=== PATIENT | female | born 1935 | race Two or more races ===

== ENCOUNTER 2018-09-20 11:11 | Emergency (ER) | payer MEDICARE, MEDICAID ==
[~2018-09-20] VITALS: Ht 152.4 cm; Wt 82.1 kg
[2018-09-20 11:59] LABS: MICROSCOPIC INDICATED
[2018-09-20 12:01] LABS: CULTURE INDICATED? YES
[2018-09-20 12:05] LABS: BASOPHILS # (AUTO) 0.07 x10^3/uL (0-0.1); BASOPHILS % (AUTO) 1 % (0-1); EOSINOPHILS # (AUTO) 0.02 x10^3/uL (0-0.4); EOSINOPHILS % (AUTO) 0 % (1-7); LYMPHOCYTES # (AUTO) 1.73 x10^3/uL (1-3.4); LYMPHOCYTES % (AUTO) 19 % (22-44); MD NO; MEAN CORPUSCULAR HEMOGLOBIN 31.4 pg (27.0-34.8); MEAN CORPUSCULAR HGB CONC 33.2 g/dL (32.4-35.8); MEAN CORPUSCULAR VOLUME 94.5 fL (80-100); MONOCYTES # (AUTO) 0.62 x10^3/uL (0.2-0.8); MONOCYTES % (AUTO) 7 % (2-9); NEUTROPHILS % (AUTO) 73 % (42-75); PLATELET COUNT 264 x10^3/uL (130-400); RED BLOOD COUNT 3.74 x10^6/uL (3.82-5.3)
[2018-09-20 12:21] LABS: ALBUMIN 3.3 g/dL (3.4-5.0); ANION GAP 9 mmol/L (5-15); CALCIUM 8.9 mg/dL (8.5-10.1); CHLORIDE 97 mmol/L (98-107)
[2018-09-20 12:27] LABS: ALANINE AMINOTRANSFERASE 24 U/L (12-78); ALKALINE PHOSPHATASE 65 U/L (45-117); BILIRUBIN,TOTAL 0.6 mg/dL (0.2-1.0); CREATININE 0.66 mg/dL (0.55-1.02); TOTAL PROTEIN 6.9 g/dL (6.4-8.2); TROPONIN I < 0.015 ng/mL (0.000-0.045)
[2018-09-20 12:46] LABS: SODIUM,URINE RANDOM 136 mmol/L
[2018-09-20 12:56] LABS: OSMOLALITY,URINE 609 mOsm/kg (500-850)
[2018-09-20 13:23] VITALS: BP 131/69
--- NOTE | 2018-09-20 13:24 | NUR ---
PT HAS USED BEDSIDE COMMODE 5 TIMES IN 2HRS, NOTIFIED
--- NOTE | 2018-09-20 13:40 | NUR ---
PHYSICIAN SCRIBE AT BEDSIDE FOR BEDSIDE BLADDER US/BLADDER SCAN, RN AT BEDSIDE FOR ASSIST
--- NOTE | 2018-09-20 14:04 | NUR ---
pt and family refusing hostpital admission. pt to be discharged. discharge insturctions given and pt instructed to return to hospital if not better.
== END 2018-09-20 14:19 | disposition home or self-care (01) ==
LOC: ED 13:14
DX: E87.1 Hypo-osmolality and hyponatremia (principal); R53.1 Weakness; M25.512 Pain in left shoulder; M25.511 Pain in right shoulder; I10 Essential (primary) hypertension; E11.9 Type 2 diabetes mellitus without complications; E78.5 Hyperlipidemia, unspecified
CPT/HCPCS: 36415; 71045; 80053; 81001; 83930; 83935; 84300; 84443; 84484; 85025; 87086; 99284

== ENCOUNTER 2018-11-18 19:33 | Emergency (ER) | payer MEDICARE ==
[~2018-11-18] VITALS: Ht 157.5 cm; Wt 80.1 kg
[2018-11-18 20:22] LABS: BASOPHILS # (AUTO) 0.05 x10^3/uL (0-0.1); BASOPHILS % (AUTO) 1 % (0-1); EOSINOPHILS # (AUTO) 0.05 x10^3/uL (0-0.4); EOSINOPHILS % (AUTO) 1 % (1-7); LYMPHOCYTES # (AUTO) 3.81 x10^3/uL (1-3.4); LYMPHOCYTES % (AUTO) 36 % (22-44); MD NO; MEAN CORPUSCULAR HEMOGLOBIN 33.4 pg (27.0-34.8); MEAN CORPUSCULAR HGB CONC 33.8 g/dL (32.4-35.8); MEAN CORPUSCULAR VOLUME 98.8 fL (80-100); MEAN PLATELET VOLUME 8.2 fL (7.4-10.4); MONOCYTES # (AUTO) 0.71 x10^3/uL (0.2-0.8); MONOCYTES % (AUTO) 7 % (2-9); NEUTROPHILS # (AUTO) 5.96 x10^3/uL (1.8-6.8); NEUTROPHILS % (AUTO) 56 % (42-75); PLATELET COUNT 229 x10^3/uL (130-400); RED BLOOD COUNT 4.08 x10^6/uL (3.82-5.3); RED CELL DISTRIBUTION WIDTH 14.5 % (9.6-15.2)
[2018-11-18 20:33] LABS: ALBUMIN 3.8 g/dL (3.4-5.0); ANION GAP 10 mmol/L (5-15); CALCIUM 9.5 mg/dL (8.5-10.1); CHLORIDE 99 mmol/L (98-107); CREATININE 0.93 mg/dL (0.55-1.02)
[2018-11-18 20:43] LABS: FREE T4 (FREE THYROXINE) 1.63 ng/dL (0.76-1.46)
--- NOTE | 2018-11-18 21:40 | NUR ---
UP TO VOID W/ X 1 ASST BACK TO BED. CALL LIGHT IN REACH.
--- NOTE | 2018-11-18 21:41 | NUR ---
FAMILY AT BEDSIDE.
--- NOTE | 2018-11-18 22:08 | NUR ---
BACK UP TO THE COMMODE TO VOID. UA COLLECTED AND SENT TO THE LAB.
[2018-11-18 22:31] LABS: CULTURE INDICATED? YES; MICROSCOPIC INDICATED
[2018-11-18 23:25] VITALS: BP 118/70
--- NOTE | 2018-11-18 23:27 | NUR ---
D/C TO THE CARE OF HER DTR.
== END 2018-11-18 23:28 | disposition home or self-care (01) ==
LOC: ED 23:04
DX: M25.512 Pain in left shoulder (principal); M79.10 Myalgia, unspecified site; R20.2 Paresthesia of skin; E11.9 Type 2 diabetes mellitus without complications; I10 Essential (primary) hypertension; E78.5 Hyperlipidemia, unspecified
CPT/HCPCS: 36415; 80048; 81001; 82040; 84439; 84443; 85025; 87086; 99284

== ENCOUNTER 2019-02-23 13:21 | Emergency (ER) | payer MEDICARE, MEDICAID ==
[~2019-02-23] VITALS: Ht 160 cm; Wt 79.5 kg
--- NOTE | 2019-02-23 13:46 | NUR ---
Pt to ED from home accomp by daughter. c/o that she is not sleeping x3 weeks. had tremors x1 month, seen at neurologist to r/o parkinson. went to see pcp. told triage "We think she has anxiety, she has not slept for three weeks now. The doctor perscribed her Melatonin and Tylenol. Sometimes she is in pain, she has a bad shoulder (left torn rotator cuff)." MILTOND Nettie at bedside for eval. daughter cannot remember name of sleep aid for pt. call cano in reach.
[2019-02-23 14:24] LABS: MICROSCOPIC AUTO
[2019-02-23 14:26] LABS: CULTURE INDICATED? YES
[2019-02-23 14:57] VITALS: BP 121/63
== END 2019-02-23 15:00 | disposition home or self-care (01) ==
LOC: ED 14:50
DX: G47.00 Insomnia, unspecified (principal); I10 Essential (primary) hypertension; E11.9 Type 2 diabetes mellitus without complications; E78.5 Hyperlipidemia, unspecified; E87.1 Hypo-osmolality and hyponatremia
CPT/HCPCS: 81001; 87077; 87086; 87186; 99283

== ENCOUNTER → 2019-07-24 | Outpatient (CLI) | payer MEDICARE ==
[~2019-07-24] MED LIST: OMNIPAQUE 350 MG/ML, 100ML BOTTLE ONE
== END | disposition home or self-care (01) ==
LOC: CFH 12:10
PROVIDERS: ATTEND Family Medicine
DX: K76.0 Fatty (change of) liver, not elsewhere classified (principal); K86.89 Other specified diseases of pancreas; I70.0 Atherosclerosis of aorta; M41.86 Other forms of scoliosis, lumbar region; M47.816 Spondylosis without myelopathy or radiculopathy, lumbar region
CPT/HCPCS: 74177; 82565; Q9967

== ENCOUNTER → 2020-01-20 | Outpatient (CLI) | payer MEDICARE, MEDICAID | END | disposition home or self-care (01) | LOC: WOUND 07:54 | PROVIDERS: ATTEND Surgery | DX: E11.622 Type 2 diabetes mellitus with other skin ulcer (principal); L97.821 Non-pressure chronic ulcer of other part of left lower leg limited to breakdown of skin; E11.621 Type 2 diabetes mellitus with foot ulcer; L97.521 Non-pressure chronic ulcer of other part of left foot limited to breakdown of skin; L98.8 Other specified disorders of the skin and subcutaneous tissue; M19.90 Unspecified osteoarthritis, unspecified site; I10 Essential (primary) hypertension; E78.5 Hyperlipidemia, unspecified; G47.00 Insomnia, unspecified; I87.2 Venous insufficiency (chronic) (peripheral); F32.9 Major depressive disorder, single episode, unspecified; M47.816 Spondylosis without myelopathy or radiculopathy, lumbar region; E66.9 Obesity, unspecified; Z68.23 Body mass index [BMI] 23.0-23.9, adult; Z79.82 Long term (current) use of aspirin | CPT/HCPCS: 97597; 97598; G0463 ==

== ENCOUNTER → 2020-01-27 | Outpatient (CLI) | payer MEDICARE, MEDICAID | END | disposition home or self-care (01) | LOC: WOUND 08:24 | PROVIDERS: ATTEND Nurse Practitioner Family | DX: E11.622 Type 2 diabetes mellitus with other skin ulcer (principal); L97.821 Non-pressure chronic ulcer of other part of left lower leg limited to breakdown of skin; E11.621 Type 2 diabetes mellitus with foot ulcer; L97.521 Non-pressure chronic ulcer of other part of left foot limited to breakdown of skin; L98.8 Other specified disorders of the skin and subcutaneous tissue; M19.90 Unspecified osteoarthritis, unspecified site; I10 Essential (primary) hypertension; E78.5 Hyperlipidemia, unspecified; G47.00 Insomnia, unspecified; I87.2 Venous insufficiency (chronic) (peripheral); F32.9 Major depressive disorder, single episode, unspecified; M47.816 Spondylosis without myelopathy or radiculopathy, lumbar region; E66.9 Obesity, unspecified; Z68.23 Body mass index [BMI] 23.0-23.9, adult; Z79.82 Long term (current) use of aspirin | CPT/HCPCS: G0463 ==

== ENCOUNTER → 2020-02-10 | Outpatient (CLI) | payer MEDICARE, MEDICAID | END | disposition home or self-care (01) | LOC: WOUND 08:22 | PROVIDERS: ATTEND Nurse Practitioner Family | DX: E11.622 Type 2 diabetes mellitus with other skin ulcer (principal); I87.312 Chronic venous hypertension (idiopathic) with ulcer of left lower extremity; L97.821 Non-pressure chronic ulcer of other part of left lower leg limited to breakdown of skin; L97.321 Non-pressure chronic ulcer of left ankle limited to breakdown of skin; L97.221 Non-pressure chronic ulcer of left calf limited to breakdown of skin; E11.621 Type 2 diabetes mellitus with foot ulcer; L97.521 Non-pressure chronic ulcer of other part of left foot limited to breakdown of skin; I87.391 Chronic venous hypertension (idiopathic) with other complications of right lower extremity; L98.8 Other specified disorders of the skin and subcutaneous tissue; M19.90 Unspecified osteoarthritis, unspecified site; E78.5 Hyperlipidemia, unspecified; G47.00 Insomnia, unspecified; F32.9 Major depressive disorder, single episode, unspecified; M47.816 Spondylosis without myelopathy or radiculopathy, lumbar region; L84 Corns and callosities; E66.9 Obesity, unspecified; Z68.23 Body mass index [BMI] 23.0-23.9, adult; Z79.82 Long term (current) use of aspirin | CPT/HCPCS: 97597; 97598 ==

== ENCOUNTER 2020-02-17 09:00 | Outpatient (CLI) | payer MEDICARE, MEDICAID | END 2020-02-17 23:59 | disposition home or self-care (01) | LOC: WOUND 09:00 | PROVIDERS: ATTEND Nurse Practitioner Family | DX: I87.313 Chronic venous hypertension (idiopathic) with ulcer of bilateral lower extremity (principal); E11.622 Type 2 diabetes mellitus with other skin ulcer; L98.495 Non-pressure chronic ulcer of skin of other sites with muscle involvement without evidence of necrosis; L97.821 Non-pressure chronic ulcer of other part of left lower leg limited to breakdown of skin; L97.811 Non-pressure chronic ulcer of other part of right lower leg limited to breakdown of skin; L97.321 Non-pressure chronic ulcer of left ankle limited to breakdown of skin; L97.221 Non-pressure chronic ulcer of left calf limited to breakdown of skin; L98.8 Other specified disorders of the skin and subcutaneous tissue; M19.90 Unspecified osteoarthritis, unspecified site; E78.5 Hyperlipidemia, unspecified; G47.00 Insomnia, unspecified; F32.9 Major depressive disorder, single episode, unspecified; M47.816 Spondylosis without myelopathy or radiculopathy, lumbar region; L84 Corns and callosities; E66.9 Obesity, unspecified; Z68.23 Body mass index [BMI] 23.0-23.9, adult; Z79.82 Long term (current) use of aspirin | CPT/HCPCS: 97597; 97598 ==

== ENCOUNTER 2020-02-24 08:31 | Outpatient (CLI) | payer MEDICARE, MEDICAID | END 2020-02-24 23:59 | disposition home or self-care (01) | LOC: WOUND 08:31 | PROVIDERS: ATTEND Nurse Practitioner Family | DX: I87.313 Chronic venous hypertension (idiopathic) with ulcer of bilateral lower extremity (principal); E11.622 Type 2 diabetes mellitus with other skin ulcer; L98.495 Non-pressure chronic ulcer of skin of other sites with muscle involvement without evidence of necrosis; L97.811 Non-pressure chronic ulcer of other part of right lower leg limited to breakdown of skin; L97.821 Non-pressure chronic ulcer of other part of left lower leg limited to breakdown of skin; L97.321 Non-pressure chronic ulcer of left ankle limited to breakdown of skin; L97.221 Non-pressure chronic ulcer of left calf limited to breakdown of skin; L98.8 Other specified disorders of the skin and subcutaneous tissue; M19.90 Unspecified osteoarthritis, unspecified site; E78.5 Hyperlipidemia, unspecified; G47.00 Insomnia, unspecified; F32.9 Major depressive disorder, single episode, unspecified; M47.816 Spondylosis without myelopathy or radiculopathy, lumbar region; L84 Corns and callosities; E66.9 Obesity, unspecified; Z68.23 Body mass index [BMI] 23.0-23.9, adult; Z79.82 Long term (current) use of aspirin | CPT/HCPCS: 97597; 97598 ==

== ENCOUNTER 2020-03-02 09:00 | Outpatient (CLI) | payer MEDICARE, MEDICAID | END 2020-03-02 23:59 | disposition home or self-care (01) | LOC: WOUND 09:00 | PROVIDERS: ATTEND Nurse Practitioner Family | DX: I87.333 Chronic venous hypertension (idiopathic) with ulcer and inflammation of bilateral lower extremity (principal); E11.622 Type 2 diabetes mellitus with other skin ulcer; I70.25 Atherosclerosis of native arteries of other extremities with ulceration; L98.495 Non-pressure chronic ulcer of skin of other sites with muscle involvement without evidence of necrosis; I70.238 Atherosclerosis of native arteries of right leg with ulceration of other part of lower leg; L97.811 Non-pressure chronic ulcer of other part of right lower leg limited to breakdown of skin; I70.248 Atherosclerosis of native arteries of left leg with ulceration of other part of lower leg; L97.821 Non-pressure chronic ulcer of other part of left lower leg limited to breakdown of skin; I70.243 Atherosclerosis of native arteries of left leg with ulceration of ankle; L97.321 Non-pressure chronic ulcer of left ankle limited to breakdown of skin; I70.242 Atherosclerosis of native arteries of left leg with ulceration of calf; L97.221 Non-pressure chronic ulcer of left calf limited to breakdown of skin; L98.8 Other specified disorders of the skin and subcutaneous tissue; M19.90 Unspecified osteoarthritis, unspecified site; E78.5 Hyperlipidemia, unspecified; G47.00 Insomnia, unspecified; F32.9 Major depressive disorder, single episode, unspecified; M47.816 Spondylosis without myelopathy or radiculopathy, lumbar region; L84 Corns and callosities; E66.9 Obesity, unspecified; Z68.23 Body mass index [BMI] 23.0-23.9, adult; Z79.82 Long term (current) use of aspirin | CPT/HCPCS: C5271; C5272; Q4118; Q4166; 15271; 15272 ==

== ENCOUNTER → 2020-03-09 | Outpatient (CLI) | payer MEDICARE, MEDICAID | END | disposition home or self-care (01) | LOC: WOUND 08:55 | PROVIDERS: ATTEND Nurse Practitioner Family | DX: E11.622 Type 2 diabetes mellitus with other skin ulcer (principal); I87.312 Chronic venous hypertension (idiopathic) with ulcer of left lower extremity; L97.821 Non-pressure chronic ulcer of other part of left lower leg limited to breakdown of skin; I70.25 Atherosclerosis of native arteries of other extremities with ulceration; L98.495 Non-pressure chronic ulcer of skin of other sites with muscle involvement without evidence of necrosis; I70.242 Atherosclerosis of native arteries of left leg with ulceration of calf; L97.221 Non-pressure chronic ulcer of left calf limited to breakdown of skin; I70.243 Atherosclerosis of native arteries of left leg with ulceration of ankle; L97.321 Non-pressure chronic ulcer of left ankle limited to breakdown of skin; L98.8 Other specified disorders of the skin and subcutaneous tissue; M19.90 Unspecified osteoarthritis, unspecified site; E78.5 Hyperlipidemia, unspecified; G47.00 Insomnia, unspecified; F32.9 Major depressive disorder, single episode, unspecified; M47.816 Spondylosis without myelopathy or radiculopathy, lumbar region; L84 Corns and callosities; E66.9 Obesity, unspecified; Z68.23 Body mass index [BMI] 23.0-23.9, adult; Z79.82 Long term (current) use of aspirin | CPT/HCPCS: 87070; 87075; 87205; 87206; 97597; 97598 ==

== ENCOUNTER 2020-03-16 08:43 | Outpatient (CLI) | payer MEDICARE, MEDICAID | END 2020-03-16 23:59 | disposition home or self-care (01) | LOC: WOUND 08:43 | PROVIDERS: ATTEND Nurse Practitioner Family | DX: E11.622 Type 2 diabetes mellitus with other skin ulcer (principal); I87.312 Chronic venous hypertension (idiopathic) with ulcer of left lower extremity; L97.821 Non-pressure chronic ulcer of other part of left lower leg limited to breakdown of skin; I70.25 Atherosclerosis of native arteries of other extremities with ulceration; L98.495 Non-pressure chronic ulcer of skin of other sites with muscle involvement without evidence of necrosis; I70.242 Atherosclerosis of native arteries of left leg with ulceration of calf; L97.221 Non-pressure chronic ulcer of left calf limited to breakdown of skin; I70.243 Atherosclerosis of native arteries of left leg with ulceration of ankle; L97.321 Non-pressure chronic ulcer of left ankle limited to breakdown of skin; L98.8 Other specified disorders of the skin and subcutaneous tissue; M19.90 Unspecified osteoarthritis, unspecified site; E78.5 Hyperlipidemia, unspecified; G47.00 Insomnia, unspecified; F32.9 Major depressive disorder, single episode, unspecified; M47.816 Spondylosis without myelopathy or radiculopathy, lumbar region; L84 Corns and callosities; E66.9 Obesity, unspecified; Z68.23 Body mass index [BMI] 23.0-23.9, adult; Z79.82 Long term (current) use of aspirin | CPT/HCPCS: 97597; 97598 ==

== ENCOUNTER 2020-03-23 07:53 | Outpatient (CLI) | payer MEDICARE, MEDICAID | END 2020-03-23 23:59 | disposition home or self-care (01) | LOC: WOUND 07:53 | PROVIDERS: ATTEND Nurse Practitioner Family | DX: E11.622 Type 2 diabetes mellitus with other skin ulcer (principal); I87.312 Chronic venous hypertension (idiopathic) with ulcer of left lower extremity; L97.821 Non-pressure chronic ulcer of other part of left lower leg limited to breakdown of skin; I70.25 Atherosclerosis of native arteries of other extremities with ulceration; L98.495 Non-pressure chronic ulcer of skin of other sites with muscle involvement without evidence of necrosis; I70.242 Atherosclerosis of native arteries of left leg with ulceration of calf; L97.221 Non-pressure chronic ulcer of left calf limited to breakdown of skin; I70.243 Atherosclerosis of native arteries of left leg with ulceration of ankle; L97.321 Non-pressure chronic ulcer of left ankle limited to breakdown of skin; L98.8 Other specified disorders of the skin and subcutaneous tissue; M19.90 Unspecified osteoarthritis, unspecified site; E78.5 Hyperlipidemia, unspecified; G47.00 Insomnia, unspecified; F32.9 Major depressive disorder, single episode, unspecified; M47.816 Spondylosis without myelopathy or radiculopathy, lumbar region; L84 Corns and callosities; E66.9 Obesity, unspecified; Z68.23 Body mass index [BMI] 23.0-23.9, adult; Z79.82 Long term (current) use of aspirin | CPT/HCPCS: 97597; 97598 ==

== ENCOUNTER 2020-03-30 08:36 | Outpatient (CLI) | payer MEDICARE, MEDICAID | END 2020-03-30 23:59 | disposition home or self-care (01) | LOC: WOUND 08:36 | PROVIDERS: ATTEND Nurse Practitioner Family | DX: E11.622 Type 2 diabetes mellitus with other skin ulcer (principal); I87.312 Chronic venous hypertension (idiopathic) with ulcer of left lower extremity; I70.248 Atherosclerosis of native arteries of left leg with ulceration of other part of lower leg; L97.821 Non-pressure chronic ulcer of other part of left lower leg limited to breakdown of skin; I70.25 Atherosclerosis of native arteries of other extremities with ulceration; L98.495 Non-pressure chronic ulcer of skin of other sites with muscle involvement without evidence of necrosis; I70.242 Atherosclerosis of native arteries of left leg with ulceration of calf; L97.221 Non-pressure chronic ulcer of left calf limited to breakdown of skin; I70.243 Atherosclerosis of native arteries of left leg with ulceration of ankle; L97.321 Non-pressure chronic ulcer of left ankle limited to breakdown of skin; L98.8 Other specified disorders of the skin and subcutaneous tissue; M19.90 Unspecified osteoarthritis, unspecified site; E78.5 Hyperlipidemia, unspecified; G47.00 Insomnia, unspecified; F32.9 Major depressive disorder, single episode, unspecified; M47.816 Spondylosis without myelopathy or radiculopathy, lumbar region; L84 Corns and callosities; E66.9 Obesity, unspecified; Z68.23 Body mass index [BMI] 23.0-23.9, adult; Z79.82 Long term (current) use of aspirin | CPT/HCPCS: 97597; 97598; Q4118; 15271; 15272 ==

== ENCOUNTER → 2020-04-06 | Outpatient (CLI) | payer MEDICARE, MEDICAID | END | disposition home or self-care (01) | LOC: WOUND 08:31 | PROVIDERS: ATTEND Nurse Practitioner Family | DX: E11.622 Type 2 diabetes mellitus with other skin ulcer (principal); I87.312 Chronic venous hypertension (idiopathic) with ulcer of left lower extremity; L97.821 Non-pressure chronic ulcer of other part of left lower leg limited to breakdown of skin; I70.4 Atherosclerosis of autologous vein bypass graft(s) of the extremities; L98.495 Non-pressure chronic ulcer of skin of other sites with muscle involvement without evidence of necrosis; I70.242 Atherosclerosis of native arteries of left leg with ulceration of calf; L97.221 Non-pressure chronic ulcer of left calf limited to breakdown of skin; I70.243 Atherosclerosis of native arteries of left leg with ulceration of ankle; L97.321 Non-pressure chronic ulcer of left ankle limited to breakdown of skin; E11.621 Type 2 diabetes mellitus with foot ulcer; I70.245 Atherosclerosis of native arteries of left leg with ulceration of other part of foot; L97.521 Non-pressure chronic ulcer of other part of left foot limited to breakdown of skin; L98.8 Other specified disorders of the skin and subcutaneous tissue; M19.90 Unspecified osteoarthritis, unspecified site; E78.5 Hyperlipidemia, unspecified; G47.00 Insomnia, unspecified; F32.9 Major depressive disorder, single episode, unspecified; M47.816 Spondylosis without myelopathy or radiculopathy, lumbar region; L84 Corns and callosities; E66.9 Obesity, unspecified; Z68.23 Body mass index [BMI] 23.0-23.9, adult; Z79.82 Long term (current) use of aspirin | CPT/HCPCS: 97597; 97598 ==

== ENCOUNTER → 2020-04-20 | Outpatient (CLI) | payer MEDICARE, MEDICAID | END | disposition home or self-care (01) | LOC: WOUND 08:31 | PROVIDERS: ATTEND Nurse Practitioner Family | DX: E11.622 Type 2 diabetes mellitus with other skin ulcer (principal); I70.248 Atherosclerosis of native arteries of left leg with ulceration of other part of lower leg; I87.312 Chronic venous hypertension (idiopathic) with ulcer of left lower extremity; L97.821 Non-pressure chronic ulcer of other part of left lower leg limited to breakdown of skin; I70.25 Atherosclerosis of native arteries of other extremities with ulceration; L98.495 Non-pressure chronic ulcer of skin of other sites with muscle involvement without evidence of necrosis; I70.242 Atherosclerosis of native arteries of left leg with ulceration of calf; L97.221 Non-pressure chronic ulcer of left calf limited to breakdown of skin; I70.243 Atherosclerosis of native arteries of left leg with ulceration of ankle; L97.321 Non-pressure chronic ulcer of left ankle limited to breakdown of skin; E11.621 Type 2 diabetes mellitus with foot ulcer; I70.245 Atherosclerosis of native arteries of left leg with ulceration of other part of foot; L97.521 Non-pressure chronic ulcer of other part of left foot limited to breakdown of skin; L98.8 Other specified disorders of the skin and subcutaneous tissue; M19.90 Unspecified osteoarthritis, unspecified site; E78.5 Hyperlipidemia, unspecified; G47.00 Insomnia, unspecified; F32.9 Major depressive disorder, single episode, unspecified; M47.816 Spondylosis without myelopathy or radiculopathy, lumbar region; L84 Corns and callosities; E66.9 Obesity, unspecified; Z68.23 Body mass index [BMI] 23.0-23.9, adult; Z79.82 Long term (current) use of aspirin | CPT/HCPCS: 97597; 97598 ==

== ENCOUNTER → 2020-04-28 | Outpatient (CLI) | payer MEDICARE, MEDICAID | END | disposition home or self-care (01) | LOC: WOUND 08:26 | PROVIDERS: ATTEND Internal Medicine | DX: E11.622 Type 2 diabetes mellitus with other skin ulcer (principal); I70.248 Atherosclerosis of native arteries of left leg with ulceration of other part of lower leg; I87.312 Chronic venous hypertension (idiopathic) with ulcer of left lower extremity; L97.821 Non-pressure chronic ulcer of other part of left lower leg limited to breakdown of skin; I70.25 Atherosclerosis of native arteries of other extremities with ulceration; L98.495 Non-pressure chronic ulcer of skin of other sites with muscle involvement without evidence of necrosis; I70.242 Atherosclerosis of native arteries of left leg with ulceration of calf; L97.221 Non-pressure chronic ulcer of left calf limited to breakdown of skin; I70.243 Atherosclerosis of native arteries of left leg with ulceration of ankle; L97.321 Non-pressure chronic ulcer of left ankle limited to breakdown of skin; L03.116 Cellulitis of left lower limb; L98.8 Other specified disorders of the skin and subcutaneous tissue; M19.90 Unspecified osteoarthritis, unspecified site; E78.5 Hyperlipidemia, unspecified; G47.00 Insomnia, unspecified; F32.9 Major depressive disorder, single episode, unspecified; M47.816 Spondylosis without myelopathy or radiculopathy, lumbar region; L84 Corns and callosities; E66.9 Obesity, unspecified; Z68.23 Body mass index [BMI] 23.0-23.9, adult; Z79.82 Long term (current) use of aspirin | CPT/HCPCS: 97597; 97598 ==

== ENCOUNTER → 2020-05-05 | Outpatient (CLI) | payer MEDICARE, MEDICAID | END | disposition home or self-care (01) | LOC: WOUND 08:21 | PROVIDERS: ATTEND Internal Medicine | DX: E11.622 Type 2 diabetes mellitus with other skin ulcer (principal); I87.312 Chronic venous hypertension (idiopathic) with ulcer of left lower extremity; L97.811 Non-pressure chronic ulcer of other part of right lower leg limited to breakdown of skin; I70.248 Atherosclerosis of native arteries of left leg with ulceration of other part of lower leg; L97.821 Non-pressure chronic ulcer of other part of left lower leg limited to breakdown of skin; I70.25 Atherosclerosis of native arteries of other extremities with ulceration; L98.495 Non-pressure chronic ulcer of skin of other sites with muscle involvement without evidence of necrosis; I70.242 Atherosclerosis of native arteries of left leg with ulceration of calf; L97.221 Non-pressure chronic ulcer of left calf limited to breakdown of skin; I70.243 Atherosclerosis of native arteries of left leg with ulceration of ankle; L97.321 Non-pressure chronic ulcer of left ankle limited to breakdown of skin; L98.8 Other specified disorders of the skin and subcutaneous tissue; L03.116 Cellulitis of left lower limb; M19.90 Unspecified osteoarthritis, unspecified site; E78.5 Hyperlipidemia, unspecified; G47.00 Insomnia, unspecified; F32.9 Major depressive disorder, single episode, unspecified; M47.816 Spondylosis without myelopathy or radiculopathy, lumbar region; L84 Corns and callosities; E66.9 Obesity, unspecified; Z68.23 Body mass index [BMI] 23.0-23.9, adult; Z79.82 Long term (current) use of aspirin | CPT/HCPCS: 97597; 97598 ==

== ENCOUNTER → 2020-05-12 | Outpatient (CLI) | payer MEDICARE, MEDICAID | END | disposition home or self-care (01) | LOC: WOUND 08:14 | PROVIDERS: ATTEND Internal Medicine | DX: E11.622 Type 2 diabetes mellitus with other skin ulcer (principal); I87.313 Chronic venous hypertension (idiopathic) with ulcer of bilateral lower extremity; I70.238 Atherosclerosis of native arteries of right leg with ulceration of other part of lower leg; L97.811 Non-pressure chronic ulcer of other part of right lower leg limited to breakdown of skin; I70.248 Atherosclerosis of native arteries of left leg with ulceration of other part of lower leg; L97.821 Non-pressure chronic ulcer of other part of left lower leg limited to breakdown of skin; I70.25 Atherosclerosis of native arteries of other extremities with ulceration; L98.495 Non-pressure chronic ulcer of skin of other sites with muscle involvement without evidence of necrosis; I70.242 Atherosclerosis of native arteries of left leg with ulceration of calf; L97.221 Non-pressure chronic ulcer of left calf limited to breakdown of skin; I70.243 Atherosclerosis of native arteries of left leg with ulceration of ankle; L97.321 Non-pressure chronic ulcer of left ankle limited to breakdown of skin; L98.8 Other specified disorders of the skin and subcutaneous tissue; L03.116 Cellulitis of left lower limb; M19.90 Unspecified osteoarthritis, unspecified site; E78.5 Hyperlipidemia, unspecified; G47.00 Insomnia, unspecified; F32.9 Major depressive disorder, single episode, unspecified; M47.816 Spondylosis without myelopathy or radiculopathy, lumbar region; L84 Corns and callosities; E66.9 Obesity, unspecified; Z68.23 Body mass index [BMI] 23.0-23.9, adult; Z79.82 Long term (current) use of aspirin | CPT/HCPCS: 97597; 97598 ==

== ENCOUNTER → 2020-05-26 | Outpatient (CLI) | payer MEDICARE, MEDICAID | END | disposition home or self-care (01) | LOC: WOUND 08:04 | PROVIDERS: ATTEND Internal Medicine | DX: E11.622 Type 2 diabetes mellitus with other skin ulcer (principal); I87.313 Chronic venous hypertension (idiopathic) with ulcer of bilateral lower extremity; I70.238 Atherosclerosis of native arteries of right leg with ulceration of other part of lower leg; L97.811 Non-pressure chronic ulcer of other part of right lower leg limited to breakdown of skin; I70.248 Atherosclerosis of native arteries of left leg with ulceration of other part of lower leg; L97.821 Non-pressure chronic ulcer of other part of left lower leg limited to breakdown of skin; I70.25 Atherosclerosis of native arteries of other extremities with ulceration; L98.495 Non-pressure chronic ulcer of skin of other sites with muscle involvement without evidence of necrosis; I70.242 Atherosclerosis of native arteries of left leg with ulceration of calf; L97.221 Non-pressure chronic ulcer of left calf limited to breakdown of skin; I70.243 Atherosclerosis of native arteries of left leg with ulceration of ankle; L97.321 Non-pressure chronic ulcer of left ankle limited to breakdown of skin; L98.8 Other specified disorders of the skin and subcutaneous tissue; L03.116 Cellulitis of left lower limb; M19.90 Unspecified osteoarthritis, unspecified site; E78.5 Hyperlipidemia, unspecified; G47.00 Insomnia, unspecified; F32.9 Major depressive disorder, single episode, unspecified; M47.816 Spondylosis without myelopathy or radiculopathy, lumbar region; L84 Corns and callosities; E66.9 Obesity, unspecified; Z68.23 Body mass index [BMI] 23.0-23.9, adult; Z79.82 Long term (current) use of aspirin | CPT/HCPCS: C5271; C5272; Q4166; 15271; 15272 ==

== ENCOUNTER → 2020-06-02 | Outpatient (CLI) | payer MEDICARE, MEDICAID | END | disposition home or self-care (01) | LOC: WOUND 07:52 | PROVIDERS: ATTEND Internal Medicine | DX: E11.622 Type 2 diabetes mellitus with other skin ulcer (principal); I87.312 Chronic venous hypertension (idiopathic) with ulcer of left lower extremity; I70.248 Atherosclerosis of native arteries of left leg with ulceration of other part of lower leg; L97.821 Non-pressure chronic ulcer of other part of left lower leg limited to breakdown of skin; I70.25 Atherosclerosis of native arteries of other extremities with ulceration; L98.495 Non-pressure chronic ulcer of skin of other sites with muscle involvement without evidence of necrosis; I70.242 Atherosclerosis of native arteries of left leg with ulceration of calf; L97.221 Non-pressure chronic ulcer of left calf limited to breakdown of skin; I70.243 Atherosclerosis of native arteries of left leg with ulceration of ankle; L97.321 Non-pressure chronic ulcer of left ankle limited to breakdown of skin; L03.116 Cellulitis of left lower limb; L98.8 Other specified disorders of the skin and subcutaneous tissue; M19.90 Unspecified osteoarthritis, unspecified site; E78.5 Hyperlipidemia, unspecified; G47.00 Insomnia, unspecified; F32.9 Major depressive disorder, single episode, unspecified; M47.816 Spondylosis without myelopathy or radiculopathy, lumbar region; L84 Corns and callosities; E66.9 Obesity, unspecified; Z68.23 Body mass index [BMI] 23.0-23.9, adult; Z79.82 Long term (current) use of aspirin | CPT/HCPCS: C5271; Q4166; 15271 ==

== ENCOUNTER 2020-06-09 07:55 | Outpatient (CLI) | payer MEDICARE, MEDICAID | END 2020-06-09 23:59 | disposition home or self-care (01) | LOC: WOUND 07:55 | PROVIDERS: ATTEND Internal Medicine | DX: I87.312 Chronic venous hypertension (idiopathic) with ulcer of left lower extremity (principal); I70.248 Atherosclerosis of native arteries of left leg with ulceration of other part of lower leg; E11.622 Type 2 diabetes mellitus with other skin ulcer; L97.821 Non-pressure chronic ulcer of other part of left lower leg limited to breakdown of skin; I70.25 Atherosclerosis of native arteries of other extremities with ulceration; L98.495 Non-pressure chronic ulcer of skin of other sites with muscle involvement without evidence of necrosis; I70.242 Atherosclerosis of native arteries of left leg with ulceration of calf; L97.221 Non-pressure chronic ulcer of left calf limited to breakdown of skin; I70.243 Atherosclerosis of native arteries of left leg with ulceration of ankle; L97.321 Non-pressure chronic ulcer of left ankle limited to breakdown of skin; L03.116 Cellulitis of left lower limb; L98.8 Other specified disorders of the skin and subcutaneous tissue; M19.90 Unspecified osteoarthritis, unspecified site; E78.5 Hyperlipidemia, unspecified; G47.00 Insomnia, unspecified; F32.9 Major depressive disorder, single episode, unspecified; M47.816 Spondylosis without myelopathy or radiculopathy, lumbar region; E66.9 Obesity, unspecified; Z68.23 Body mass index [BMI] 23.0-23.9, adult; Z79.82 Long term (current) use of aspirin | CPT/HCPCS: C5271; Q4166 ==

== ENCOUNTER → 2020-06-16 | Outpatient (CLI) | payer MEDICARE, MEDICAID | END | disposition home or self-care (01) | LOC: WOUND 10:00 | PROVIDERS: ATTEND Internal Medicine | DX: I87.312 Chronic venous hypertension (idiopathic) with ulcer of left lower extremity (principal); I70.248 Atherosclerosis of native arteries of left leg with ulceration of other part of lower leg; E11.622 Type 2 diabetes mellitus with other skin ulcer; L97.821 Non-pressure chronic ulcer of other part of left lower leg limited to breakdown of skin; I70.25 Atherosclerosis of native arteries of other extremities with ulceration; L98.495 Non-pressure chronic ulcer of skin of other sites with muscle involvement without evidence of necrosis; I70.242 Atherosclerosis of native arteries of left leg with ulceration of calf; L97.221 Non-pressure chronic ulcer of left calf limited to breakdown of skin; I70.243 Atherosclerosis of native arteries of left leg with ulceration of ankle; L97.321 Non-pressure chronic ulcer of left ankle limited to breakdown of skin; L03.116 Cellulitis of left lower limb; L98.8 Other specified disorders of the skin and subcutaneous tissue; M19.90 Unspecified osteoarthritis, unspecified site; E78.5 Hyperlipidemia, unspecified; G47.00 Insomnia, unspecified; F32.9 Major depressive disorder, single episode, unspecified; M47.816 Spondylosis without myelopathy or radiculopathy, lumbar region; L84 Corns and callosities; E66.9 Obesity, unspecified; Z68.23 Body mass index [BMI] 23.0-23.9, adult; Z79.82 Long term (current) use of aspirin | CPT/HCPCS: C5271; Q4166; 15271 ==

== ENCOUNTER → 2020-06-23 | Outpatient (CLI) | payer MEDICARE, MEDICAID | END | disposition home or self-care (01) | LOC: WOUND 08:13 | PROVIDERS: ATTEND Internal Medicine Cardiovascular Disease | DX: I87.312 Chronic venous hypertension (idiopathic) with ulcer of left lower extremity (principal); I70.248 Atherosclerosis of native arteries of left leg with ulceration of other part of lower leg; E11.622 Type 2 diabetes mellitus with other skin ulcer; L97.821 Non-pressure chronic ulcer of other part of left lower leg limited to breakdown of skin; I70.242 Atherosclerosis of native arteries of left leg with ulceration of calf; L97.221 Non-pressure chronic ulcer of left calf limited to breakdown of skin; I70.243 Atherosclerosis of native arteries of left leg with ulceration of ankle; L97.321 Non-pressure chronic ulcer of left ankle limited to breakdown of skin; I70.25 Atherosclerosis of native arteries of other extremities with ulceration; L98.495 Non-pressure chronic ulcer of skin of other sites with muscle involvement without evidence of necrosis; L03.116 Cellulitis of left lower limb; L98.8 Other specified disorders of the skin and subcutaneous tissue; M19.90 Unspecified osteoarthritis, unspecified site; E78.5 Hyperlipidemia, unspecified; G47.00 Insomnia, unspecified; F32.9 Major depressive disorder, single episode, unspecified; M47.816 Spondylosis without myelopathy or radiculopathy, lumbar region; L84 Corns and callosities; E66.9 Obesity, unspecified; Z68.23 Body mass index [BMI] 23.0-23.9, adult; Z79.82 Long term (current) use of aspirin | CPT/HCPCS: G0463 ==

== ENCOUNTER → 2020-06-30 | Outpatient (CLI) | payer MEDICARE, MEDICAID | END | disposition home or self-care (01) | LOC: WOUND 08:15 | PROVIDERS: ATTEND Internal Medicine | DX: I87.312 Chronic venous hypertension (idiopathic) with ulcer of left lower extremity (principal); I70.248 Atherosclerosis of native arteries of left leg with ulceration of other part of lower leg; E11.622 Type 2 diabetes mellitus with other skin ulcer; L97.821 Non-pressure chronic ulcer of other part of left lower leg limited to breakdown of skin; I70.242 Atherosclerosis of native arteries of left leg with ulceration of calf; L97.221 Non-pressure chronic ulcer of left calf limited to breakdown of skin; I70.243 Atherosclerosis of native arteries of left leg with ulceration of ankle; L97.321 Non-pressure chronic ulcer of left ankle limited to breakdown of skin; I70.25 Atherosclerosis of native arteries of other extremities with ulceration; L98.495 Non-pressure chronic ulcer of skin of other sites with muscle involvement without evidence of necrosis; L03.116 Cellulitis of left lower limb; L98.8 Other specified disorders of the skin and subcutaneous tissue; M19.90 Unspecified osteoarthritis, unspecified site; E78.5 Hyperlipidemia, unspecified; G47.00 Insomnia, unspecified; F32.9 Major depressive disorder, single episode, unspecified; M47.816 Spondylosis without myelopathy or radiculopathy, lumbar region; L84 Corns and callosities; E66.9 Obesity, unspecified; Z68.23 Body mass index [BMI] 23.0-23.9, adult; Z79.82 Long term (current) use of aspirin | CPT/HCPCS: 97597 ==

== ENCOUNTER → 2020-07-07 | Outpatient (CLI) | payer MEDICARE, MEDICAID | END | disposition home or self-care (01) | LOC: WOUND 08:13 | PROVIDERS: ATTEND Internal Medicine | DX: I87.312 Chronic venous hypertension (idiopathic) with ulcer of left lower extremity (principal); I70.248 Atherosclerosis of native arteries of left leg with ulceration of other part of lower leg; E11.622 Type 2 diabetes mellitus with other skin ulcer; L97.821 Non-pressure chronic ulcer of other part of left lower leg limited to breakdown of skin; I70.242 Atherosclerosis of native arteries of left leg with ulceration of calf; L97.221 Non-pressure chronic ulcer of left calf limited to breakdown of skin; I70.243 Atherosclerosis of native arteries of left leg with ulceration of ankle; L97.321 Non-pressure chronic ulcer of left ankle limited to breakdown of skin; I70.25 Atherosclerosis of native arteries of other extremities with ulceration; L98.495 Non-pressure chronic ulcer of skin of other sites with muscle involvement without evidence of necrosis; L03.116 Cellulitis of left lower limb; L98.8 Other specified disorders of the skin and subcutaneous tissue; M19.90 Unspecified osteoarthritis, unspecified site; E78.5 Hyperlipidemia, unspecified; G47.00 Insomnia, unspecified; F32.9 Major depressive disorder, single episode, unspecified; M47.816 Spondylosis without myelopathy or radiculopathy, lumbar region; L84 Corns and callosities; E66.9 Obesity, unspecified; Z68.23 Body mass index [BMI] 23.0-23.9, adult; Z79.82 Long term (current) use of aspirin | CPT/HCPCS: 97597 ==

== ENCOUNTER → 2020-07-21 | Outpatient (CLI) | payer MEDICARE, MEDICAID | END | disposition home or self-care (01) | LOC: WOUND 08:17 | PROVIDERS: ATTEND Internal Medicine | DX: I87.312 Chronic venous hypertension (idiopathic) with ulcer of left lower extremity (principal); I70.248 Atherosclerosis of native arteries of left leg with ulceration of other part of lower leg; E11.622 Type 2 diabetes mellitus with other skin ulcer; L97.821 Non-pressure chronic ulcer of other part of left lower leg limited to breakdown of skin; I70.242 Atherosclerosis of native arteries of left leg with ulceration of calf; L97.221 Non-pressure chronic ulcer of left calf limited to breakdown of skin; I70.243 Atherosclerosis of native arteries of left leg with ulceration of ankle; L97.321 Non-pressure chronic ulcer of left ankle limited to breakdown of skin; I70.25 Atherosclerosis of native arteries of other extremities with ulceration; L98.495 Non-pressure chronic ulcer of skin of other sites with muscle involvement without evidence of necrosis; L03.116 Cellulitis of left lower limb; L98.8 Other specified disorders of the skin and subcutaneous tissue; M19.90 Unspecified osteoarthritis, unspecified site; E78.5 Hyperlipidemia, unspecified; G47.00 Insomnia, unspecified; F32.9 Major depressive disorder, single episode, unspecified; M47.816 Spondylosis without myelopathy or radiculopathy, lumbar region; L84 Corns and callosities; E66.9 Obesity, unspecified; Z68.23 Body mass index [BMI] 23.0-23.9, adult; Z79.82 Long term (current) use of aspirin | CPT/HCPCS: 97597 ==

== ENCOUNTER → 2020-08-04 | Outpatient (CLI) | payer MEDICARE, MEDICAID | END | disposition home or self-care (01) | LOC: WOUND 08:02 | PROVIDERS: ATTEND Internal Medicine | DX: I87.312 Chronic venous hypertension (idiopathic) with ulcer of left lower extremity (principal); I70.248 Atherosclerosis of native arteries of left leg with ulceration of other part of lower leg; E11.622 Type 2 diabetes mellitus with other skin ulcer; L97.821 Non-pressure chronic ulcer of other part of left lower leg limited to breakdown of skin; I70.242 Atherosclerosis of native arteries of left leg with ulceration of calf; L97.221 Non-pressure chronic ulcer of left calf limited to breakdown of skin; I70.243 Atherosclerosis of native arteries of left leg with ulceration of ankle; L97.321 Non-pressure chronic ulcer of left ankle limited to breakdown of skin; I70.25 Atherosclerosis of native arteries of other extremities with ulceration; L98.495 Non-pressure chronic ulcer of skin of other sites with muscle involvement without evidence of necrosis; L03.116 Cellulitis of left lower limb; L98.8 Other specified disorders of the skin and subcutaneous tissue; M19.90 Unspecified osteoarthritis, unspecified site; E78.5 Hyperlipidemia, unspecified; G47.00 Insomnia, unspecified; F32.9 Major depressive disorder, single episode, unspecified; M47.816 Spondylosis without myelopathy or radiculopathy, lumbar region; L84 Corns and callosities; E66.9 Obesity, unspecified; Z68.23 Body mass index [BMI] 23.0-23.9, adult; Z79.82 Long term (current) use of aspirin | CPT/HCPCS: 97597 ==

== ENCOUNTER 2020-08-25 08:11 | Outpatient (CLI) | payer MEDICARE, MEDICAID | END 2020-08-25 23:59 | disposition home or self-care (01) | LOC: WOUND 08:11 | PROVIDERS: ATTEND Surgery | DX: E11.622 Type 2 diabetes mellitus with other skin ulcer (principal); I70.248 Atherosclerosis of native arteries of left leg with ulceration of other part of lower leg; L97.821 Non-pressure chronic ulcer of other part of left lower leg limited to breakdown of skin; I70.25 Atherosclerosis of native arteries of other extremities with ulceration; L98.495 Non-pressure chronic ulcer of skin of other sites with muscle involvement without evidence of necrosis; L03.116 Cellulitis of left lower limb; L98.8 Other specified disorders of the skin and subcutaneous tissue; M19.90 Unspecified osteoarthritis, unspecified site; E78.5 Hyperlipidemia, unspecified; G47.00 Insomnia, unspecified; F32.9 Major depressive disorder, single episode, unspecified; M47.816 Spondylosis without myelopathy or radiculopathy, lumbar region; E11.51 Type 2 diabetes mellitus with diabetic peripheral angiopathy without gangrene; I10 Essential (primary) hypertension; L84 Corns and callosities; E66.9 Obesity, unspecified; Z68.23 Body mass index [BMI] 23.0-23.9, adult; Z79.82 Long term (current) use of aspirin; Z79.899 Other long term (current) drug therapy | CPT/HCPCS: G0463 ==

== ENCOUNTER 2020-08-27 05:43 | Observation (INO) | payer MEDICARE, MEDICAID ==
[~2020-08-27] VITALS: Ht 154.9 cm; Wt 76.6 kg
--- NOTE | 2020-08-27 05:55 | NUR ---
PT BIB [facility] BECAUSE SHE "DON'T FEEL WELL". PT SEEN AT [facility] LAST WEEK FOR LOW SODIUM. FAMILY TOLD EMS THAT THE PT IS ACTING THE SAME WHEN LAST TIME SHE WAS SEEN AT [facility]. MD TO BEDSIDE TO KAI.
[2020-08-27] MEDS ORDERED: SODIUM CHLORIDE FLUSH 10ML SYR IVF ONE (06:00)
[2020-08-27] MEDS ORDERED: SODIUM CHLORIDE 0.9% 1,000 ML IV ONE (06:00)
--- NOTE | 2020-08-27 06:08 | NUR ---
PIV TO RIGHT HAND X1 ATTEMPT 20G. IVF NS STARTED WITH DIAL-A-FLOW AT 75ML/HR. PER MD ORDER. PT TOLERATED WELL, BLOOD DRAWN AND GIVEN TO CHIEF LEGAL OFFICER TO TAKE TO LAB. PT RESTING, ON CR MONITOR, AND NO ACUTE DISTRESS.
[2020-08-27 06:16] LABS: BASOPHILS % (AUTO) 1 % (0-1); EOSINOPHILS % (AUTO) 2 % (1-7); LYMPHOCYTES % (AUTO) 45 % (22-44); MEAN CORPUSCULAR HEMOGLOBIN 31.5 pg (27.0-34.8); MEAN CORPUSCULAR HGB CONC 33.5 g/dL (32.4-35.8); MEAN PLATELET VOLUME 7.7 fL (7.4-10.4); MONOCYTES % (AUTO) 5 % (2-9); NEUTROPHILS % (AUTO) 48 % (42-75); PLATELET COUNT 248 x10^3/uL (130-400); RED CELL DISTRIBUTION WIDTH 15.4 % (9.6-15.2)
[2020-08-27 06:26] LABS: ALANINE AMINOTRANSFERASE 18 U/L (12-78); ALBUMIN 3.3 g/dL (3.4-5.0); ANION GAP 11 mmol/L (5-15); CALCIUM 8.8 mg/dL (8.5-10.1); CHLORIDE 106 mmol/L (98-107); CREATININE 0.47 mg/dL (0.55-1.02)
[2020-08-27 06:36] LABS: ALKALINE PHOSPHATASE 73 U/L (45-117); BILIRUBIN,TOTAL 0.7 mg/dL (0.2-1.0); TOTAL PROTEIN 7.3 g/dL (6.4-8.2)
--- NOTE | 2020-08-27 06:51 | NUR ---
REPORT AND CARE TO MICHAEL TORRES.
--- NOTE | 2020-08-27 06:59 | NUR ---
PATIENT URINATED, CLEANED, AND PUREWICK IN PLACE, NADN, VSS, SIDE RAILS UP X2, CALL LIGHT WITHIN REACH.
[2020-08-27] MEDS ORDERED: POTASSIUM CHLORIDE 40 MEQ in SODIUM CHLORIDE 0.9% 500 ML IV ONE (07:00)
[2020-08-27] MEDS ORDERED: POTASSIUM CHLORIDE 20 MEQ TAB.ER.PRT PO ONE (07:00)
[2020-08-27] MEDS ORDERED: POTASSIUM CHLORIDE 20 MEQ TAB.ER.PRT ONE (07:04)
[2020-08-27] MEDS ORDERED: MIRT30TA97 PO (07:24)
[2020-08-27] MEDS ORDERED: AMLO-210 PO (07:24)
[2020-08-27] MEDS ORDERED: LOSA100T14 PO (07:24)
[2020-08-27] MEDS ORDERED: OMEP20CA20 PO (07:24)
[2020-08-27] MEDS ORDERED: ATOR20TA86 PO (07:24)
--- NOTE | 2020-08-27 08:12 | NUR ---
PATIENT C/O IV HURTING, SECOND IV STARTED, 20 GAUGE LEFT WRIST, POTASSIUM CHLORIDE RUNNING, FAMILY AT BEDSIDE, NADN, VSS, PATIENT DENIES PAIN, CALL LIGHT WITHIN REACH.
--- NOTE | 2020-08-27 08:16 | NUR ---
ATTEMPTED TO CALL REPORT.
[2020-08-27] MEDS ORDERED: AMLODIPINE 5 MG TABLET ONE (08:18)
[2020-08-27] MEDS ORDERED: HEPARIN 5,000 UNITS/ML, 1ML ONE (08:18)
[2020-08-27] MEDS ORDERED: OMEPRAZOLE 20 MG CAPSULE.DR ONE (08:18)
[2020-08-27] MEDS ORDERED: ATORVASTATIN 20 MG TABLET ONE (08:18)
[2020-08-27] MEDS ORDERED: SENNA/DOCUSATE TABLET ONE (08:18)
[2020-08-27] MEDS: SENNA/DOCUSATE TABLET PO SCH (08:22)
[2020-08-27] MEDS: HEPARIN 5,000 UNITS/ML, 1ML SQ SCH ×3 (08:22→23:09)
[2020-08-27] MEDS: OMEPRAZOLE 20 MG CAPSULE.DR PO SCH (08:22)
[2020-08-27] MEDS: AMLODIPINE 5 MG TABLET PO SCH (08:22)
[2020-08-27] MEDS: ATORVASTATIN 20 MG TABLET PO SCH (08:22)
--- NOTE | 2020-08-27 08:34 | NUR ---
URINE COLLECTED AND SENT TO LAB.
--- NOTE | 2020-08-27 08:37 | NUR ---
REPORT TO BRIAN RODRIGUEZ FOR TRANSFER OF PATIENT CARE.
[2020-08-27 08:42] LABS: MICROSCOPIC NOT IND
[2020-08-27 08:45] LABS: CHLORIDE,URINE RANDOM 99 mmol/L; POTASSIUM,URINE RANDOM 5 mmol/L; SODIUM,URINE RANDOM 94 mmol/L
--- NOTE | 2020-08-27 09:33 | NUR ---
PATIENT TRANSFERRED TO FLOOR VIA GURNEY WITH ENGINEERING MGR, FAMILY MEMBER AT BEDSIDE, ALL PATIENT BELONGINGS TAKEN TO FLOOR WITH PATIENT.
[2020-08-27 10:19] VITALS: BP 119/62
[2020-08-27 10:37] VITALS: BP 119/62
[2020-08-27 12:35] VITALS: BP 119/70
[2020-08-27] MEDS: LOSARTAN 100 MG TAB PO SCH (12:38)
[2020-08-27 14:21] LABS: ANION GAP 8 mmol/L (5-15); CHLORIDE 110 mmol/L (98-107); CREATININE 0.43 mg/dL (0.55-1.02)
[2020-08-27] MEDS: ACETAMINOPHEN 325 MG TABLET PO PRN ×2 (17:15→21:14)
[2020-08-27 20:51] VITALS: BP 119/68
[2020-08-27] MEDS ORDERED: MIRTAZAPINE 30 MG TAB.RAPDIS PO SCH (21:00)
[2020-08-27] MEDS ORDERED: MELATONIN 5 MG TABLET PO PRN (23:00)
[2020-08-28 03:58] VITALS: BP 125/73
[2020-08-28 05:44] LABS: CHLORIDE 108 mmol/L (98-107)
[2020-08-28 05:49] LABS: ANION GAP 7 mmol/L (5-15); CALCIUM 9.1 mg/dL (8.5-10.1); CREATININE 0.51 mg/dL (0.55-1.02)
[2020-08-28] MEDS: AMLODIPINE 5 MG TABLET PO SCH (08:13)
[2020-08-28] MEDS: LOSARTAN 100 MG TAB PO SCH (08:13)
[2020-08-28] MEDS: OMEPRAZOLE 20 MG CAPSULE.DR PO SCH (08:13)
[2020-08-28] MEDS: SENNA/DOCUSATE TABLET PO SCH (08:14)
[2020-08-28] MEDS: ATORVASTATIN 20 MG TABLET PO SCH (08:14)
[2020-08-28] MEDS: HEPARIN 5,000 UNITS/ML, 1ML SQ SCH (08:14)
[2020-08-28] MEDS ORDERED: POTASSIUM CHLORIDE 20 MEQ TAB.ER.PRT PO ONE (09:00)
[2020-08-28 11:08] VITALS: BP 149/72
[2020-08-28] MEDS ORDERED: POTA20TA14 PO (12:26)
[2020-08-28 12:59] VITALS: BP 146/71
== END 2020-08-28 14:00 | disposition home or self-care (01) ==
LOC: ED 07:01 → SUATTDRO 07:23 → EDIP 07:34 → INTOOBSV 07:34 → 4WST 10:00
PROVIDERS: ADMIT Internal Medicine; ATTEND Internal Medicine
DX: R53.1 Weakness (principal); E87.6 Hypokalemia; S91.002A Unspecified open wound, left ankle, initial encounter; I10 Essential (primary) hypertension; I73.9 Peripheral vascular disease, unspecified; E11.9 Type 2 diabetes mellitus without complications; E78.5 Hyperlipidemia, unspecified; E87.1 Hypo-osmolality and hyponatremia; Z66 Do not resuscitate; Z79.899 Other long term (current) drug therapy
CPT/HCPCS: 36415; 74018; 80048; 80053; 81003; 82436; 83735; 83930; 84100; 84133; 84300; 84443; 85025; 93005; 96361; 96365; 96366; 96372; 97162; 99285; G0378; J1644; J3480; J7030; J7040

== ENCOUNTER 2020-09-07 12:19 | Emergency (ER) | payer MEDICARE, MEDICAID ==
[~2020-09-07] VITALS: Ht 152.4 cm; Wt 82.0 kg
[~2020-09-07 12:19] MED LIST changes: +AMLO-210 PO; +ATOR20TA86 PO; +LOSA100T14 PO; +MIRT30TA97 PO; +OMEP20CA20 PO; -OMNIPAQUE 350 MG/ML, 100ML BOTTLE ONE; +POTA20TA14 PO
--- NOTE | 2020-09-07 13:24 | NUR ---
TO BEDSIDE FOR EVALUATION. DANA. AMARI.
--- NOTE | 2020-09-07 13:24 | NUR ---
LATE ENTRY: PT W/C/O 2 days of weakness, new loss of appetite. Previously admitted for low sodium then low potassium. DAUGHTER AT BEDSIDE FOR SHAPER SETTER AND HISTORIAN. PT TO BED WITH ASSISTED PIVIT FROM WHEELCHAIR. PT POSTIONED TO COMFORT. VSS. FITZPATRICK.
[2020-09-07] MEDS ORDERED: SODIUM CHLORIDE FLUSH 10ML SYR IVF ONE (13:30)
[2020-09-07 14:19] LABS: BASOPHILS % (AUTO) 1 % (0-1); EOSINOPHILS % (AUTO) 1 % (1-7); LYMPHOCYTES % (AUTO) 37 % (22-44); MEAN CORPUSCULAR HEMOGLOBIN 31.7 pg (27.0-34.8); MEAN CORPUSCULAR HGB CONC 33.5 g/dL (32.4-35.8); MEAN PLATELET VOLUME 8.2 fL (7.4-10.4); MONOCYTES % (AUTO) 6 % (2-9); NEUTROPHILS % (AUTO) 56 % (42-75); PLATELET COUNT 256 x10^3/uL (130-400); RED BLOOD COUNT 3.99 x10^6/uL (3.82-5.3); RED CELL DISTRIBUTION WIDTH 15.7 % (9.6-15.2)
[2020-09-07 14:29] LABS: ANION GAP 7 mmol/L (5-15); CALCIUM 9.6 mg/dL (8.5-10.1); CHLORIDE 103 mmol/L (98-107)
[2020-09-07 14:34] LABS: ALANINE AMINOTRANSFERASE 22 U/L (12-78); ALKALINE PHOSPHATASE 81 U/L (45-117); BILIRUBIN,TOTAL 0.6 mg/dL (0.2-1.0); CREATININE 0.55 mg/dL (0.55-1.02); TOTAL PROTEIN 8.6 g/dL (6.4-8.2)
[2020-09-07 14:50] LABS: MICROSCOPIC INDICATED
[2020-09-07 16:08] VITALS: BP 141/76
--- NOTE | 2020-09-07 16:08 | NUR ---
PT RESTING IN BED UP FOR RECHECK. VSS. FITZPATRICK.
--- NOTE | 2020-09-07 17:01 | NUR ---
Patient given discharge instructions and they have confirmed that they understand the instructions. Patient ambulatory with steady gait. NAD, all questions answered appropriately, denies additional needs at this time. No personal belongings left in room after discharge.
== END 2020-09-07 17:02 | disposition home or self-care (01) ==
LOC: ED 13:54
DX: R53.1 Weakness (principal); R53.83 Other fatigue; R94.31 Abnormal electrocardiogram [ECG] [EKG]; I10 Essential (primary) hypertension; E78.5 Hyperlipidemia, unspecified; E11.9 Type 2 diabetes mellitus without complications
CPT/HCPCS: 36415; 80053; 81001; 85025; 87077; 87086; 87186; 93005; 99284

== ENCOUNTER → 2020-09-15 | Outpatient (CLI) | payer MEDICARE, MEDICAID | END | disposition home or self-care (01) | LOC: WOUND 08:10 | PROVIDERS: ATTEND Internal Medicine | DX: I87.312 Chronic venous hypertension (idiopathic) with ulcer of left lower extremity (principal); E11.622 Type 2 diabetes mellitus with other skin ulcer; I70.248 Atherosclerosis of native arteries of left leg with ulceration of other part of lower leg; L97.822 Non-pressure chronic ulcer of other part of left lower leg with fat layer exposed; I70.242 Atherosclerosis of native arteries of left leg with ulceration of calf; L97.221 Non-pressure chronic ulcer of left calf limited to breakdown of skin; I70.243 Atherosclerosis of native arteries of left leg with ulceration of ankle; L97.321 Non-pressure chronic ulcer of left ankle limited to breakdown of skin; I70.25 Atherosclerosis of native arteries of other extremities with ulceration; L98.495 Non-pressure chronic ulcer of skin of other sites with muscle involvement without evidence of necrosis; L03.116 Cellulitis of left lower limb; L98.8 Other specified disorders of the skin and subcutaneous tissue; M19.90 Unspecified osteoarthritis, unspecified site; E11.51 Type 2 diabetes mellitus with diabetic peripheral angiopathy without gangrene; E78.5 Hyperlipidemia, unspecified; G47.00 Insomnia, unspecified; F32.9 Major depressive disorder, single episode, unspecified; M47.816 Spondylosis without myelopathy or radiculopathy, lumbar region; L84 Corns and callosities; E66.9 Obesity, unspecified; Z68.23 Body mass index [BMI] 23.0-23.9, adult; Z79.82 Long term (current) use of aspirin; Z79.899 Other long term (current) drug therapy | CPT/HCPCS: 11042 ==

== ENCOUNTER → 2020-09-15 | Outpatient (CLI) | payer MEDICARE, MEDICAID | END | disposition home or self-care (01) | LOC: CFH 08:56 | PROVIDERS: ATTEND Internal Medicine | DX: L98.495 Non-pressure chronic ulcer of skin of other sites with muscle involvement without evidence of necrosis (principal) ==

== ENCOUNTER 2020-09-18 19:17 | Emergency (ER) | payer MEDICARE, MEDICAID ==
[~2020-09-18] VITALS: Ht 160 cm; Wt 87.0 kg
--- NOTE | 2020-09-18 20:16 | NUR ---
pt to room at this time
[2020-09-18 21:37] LABS: BASOPHILS % (AUTO) 1 % (0-1); EOSINOPHILS % (AUTO) 1 % (1-7); LYMPHOCYTES % (AUTO) 27 % (22-44); MEAN CORPUSCULAR HEMOGLOBIN 32.1 pg (27.0-34.8); MEAN CORPUSCULAR HGB CONC 34.1 g/dL (32.4-35.8); MONOCYTES % (AUTO) 7 % (2-9); NEUTROPHILS % (AUTO) 65 % (42-75); PLATELET COUNT 233 x10^3/uL (130-400); RED BLOOD COUNT 3.85 x10^6/uL (3.82-5.3); RED CELL DISTRIBUTION WIDTH 14.8 % (9.6-15.2)
[2020-09-18 21:44] LABS: ALBUMIN 3.5 g/dL (3.4-5.0); ANION GAP 7 mmol/L (5-15); CHLORIDE 100 mmol/L (98-107)
[2020-09-18 21:49] LABS: ALANINE AMINOTRANSFERASE 17 U/L (12-78); ALKALINE PHOSPHATASE 74 U/L (45-117); BILIRUBIN,TOTAL 0.5 mg/dL (0.2-1.0); CREATININE 0.56 mg/dL (0.55-1.02); TOTAL PROTEIN 7.7 g/dL (6.4-8.2); TROPONIN I 0.038 ng/mL (0.000-0.045)
[2020-09-18 21:58] VITALS: BP 135/67
--- NOTE | 2020-09-18 21:59 | NUR ---
PT RESTING ON ADELIA FITZPATRICK RESP EVEN UNLABORED
[2020-09-18] MEDS ORDERED: ONDANSETRON ODT 4 MG ONE (23:15)
[2020-09-18] MEDS ORDERED: ONDANSETRON ODT 4 MG PO ONE (23:30)
--- NOTE | 2020-09-18 23:54 | NUR ---
PT WHEELED TO DC DESK WITH FAMILY
== END 2020-09-18 23:55 | disposition home or self-care (01) ==
LOC: ED 20:06
DX: R53.1 Weakness (principal); R11.0 Nausea; I10 Essential (primary) hypertension; E78.5 Hyperlipidemia, unspecified
CPT/HCPCS: 36415; 71045; 80053; 84484; 85025; 93005; 99285; Q0162

== ENCOUNTER 2020-09-22 07:56 | Outpatient (CLI) | payer MEDICARE, MEDICAID | END 2020-09-22 23:59 | disposition home or self-care (01) | LOC: WOUND 07:56 | PROVIDERS: ATTEND Internal Medicine | DX: I70.25 Atherosclerosis of native arteries of other extremities with ulceration (principal); E11.622 Type 2 diabetes mellitus with other skin ulcer; L98.495 Non-pressure chronic ulcer of skin of other sites with muscle involvement without evidence of necrosis; L03.116 Cellulitis of left lower limb; I87.302 Chronic venous hypertension (idiopathic) without complications of left lower extremity; M19.90 Unspecified osteoarthritis, unspecified site; E11.51 Type 2 diabetes mellitus with diabetic peripheral angiopathy without gangrene; E78.5 Hyperlipidemia, unspecified; G47.00 Insomnia, unspecified; F32.9 Major depressive disorder, single episode, unspecified; M47.816 Spondylosis without myelopathy or radiculopathy, lumbar region; L84 Corns and callosities; E66.9 Obesity, unspecified; Z68.23 Body mass index [BMI] 23.0-23.9, adult; Z79.82 Long term (current) use of aspirin; Z79.899 Other long term (current) drug therapy | CPT/HCPCS: G0463 ==

== ENCOUNTER 2020-10-12 19:41 | Emergency (ER) | payer MEDICARE, MEDICAID ==
[~2020-10-12] VITALS: Ht 152.4 cm; Wt 80.0 kg
[2020-10-12] MEDS ORDERED: LORazepam 1MG TABLET ONE (20:25)
[2020-10-12] MEDS ORDERED: LORazepam 1MG TABLET PO ONE (20:30)
[2020-10-12 20:57] LABS: BASOPHILS % (AUTO) 1 % (0-1); EOSINOPHILS % (AUTO) 1 % (1-7); LYMPHOCYTES % (AUTO) 23 % (22-44); MEAN CORPUSCULAR HGB CONC 33.9 g/dL (32.4-35.8); MEAN PLATELET VOLUME 7.6 fL (7.4-10.4); MONOCYTES % (AUTO) 5 % (2-9); NEUTROPHILS % (AUTO) 70 % (42-75); PLATELET COUNT 267 x10^3/uL (130-400); RED BLOOD COUNT 3.92 x10^6/uL (3.82-5.3); RED CELL DISTRIBUTION WIDTH 14.7 % (9.6-15.2)
[2020-10-12 21:36] LABS: TROPONIN I < 0.015 ng/mL (0.000-0.045)
[2020-10-12 21:40] VITALS: BP 114/46
--- NOTE | 2020-10-12 22:01 | NUR ---
Patient/ DAUGHTER given discharge instructions and they have confirmed that they understand the instructions. Patient ambulatory with steady gait. NAD, all questions answered appropriately, denies additional needs at this time. No personal belongings left in room after discharge.
== END 2020-10-12 22:03 | disposition home or self-care (01) ==
LOC: ED 21:22
DX: R25.1 Tremor, unspecified (principal); R94.31 Abnormal electrocardiogram [ECG] [EKG]; I10 Essential (primary) hypertension; E11.9 Type 2 diabetes mellitus without complications; E78.5 Hyperlipidemia, unspecified
CPT/HCPCS: 36415; 71045; 80047; 84484; 85025; 93005; 99285